=== PATIENT | male | born 1990 | race Hispanic/Latino ===

== ENCOUNTER 2022-12-15 18:46 | Emergency (ER) | payer OTHER ==
[~2022-12-15] VITALS: Ht 170.2 cm; Wt 93.0 kg
[2022-12-15 19:03] VITALS: BP 148/84; PULSE 119; RESP 18; O2SAT 99
== END 2022-12-15 22:26 | disposition left against medical advice (07) ==
LOC: EDH 18:46
DX: M25.561 Pain in right knee (principal); M79.89 Other specified soft tissue disorders; Z79.899 Other long term (current) drug therapy; Z98.890 Other specified postprocedural states; Z88.8 Allergy status to other drugs, medicaments and biological substances
CPT/HCPCS: 73562